=== PATIENT | female | born 1990 | race Caucasian/White ===

== ENCOUNTER 2016-10-10 16:21 | Emergency (ER) | payer BC, MEDICAID ==
[~2016-10-10] VITALS: Ht 175.3 cm; Wt 63.5 kg
[~2016-10-10 16:21] MED LIST: ALPR2TAB2 PO
--- NOTE | 2016-10-10 16:35 | NUR ---
PT CAME IN FOR C/O LEFT SIDED CHEST PAIN RADIATES TO LEFT SHOULDER, +NAUSEOUS X 2 WEEKS. NOTED ANXIOUS. DENIES TRAUMA. SEEN BY PA. VSS. SAFETY AND COMFORT MEASURES PROVIDED. WILL MONITOR.
[2016-10-10 16:49] LABS: BASOPHILS # (AUTO) 0.2 /CMM (0.0-0.2); BASOPHILS % (AUTO) 2.3 % (0.0-2.0); EOSINOPHILS # (AUTO) 0.1 /CMM (0.0-0.7); HEMATOCRIT 44 % (33-45); HEMOGLOBIN 14.3 g/dL (11.5-14.8); LYMPHOCYTES # (AUTO) 3.1 /CMM (0.8-4.8); LYMPHOCYTES % (AUTO) 32.2 % (20.0-44.0); MEAN CORPUSCULAR HEMOGLOBIN 30 PG (26.0-33.0); MEAN CORPUSCULAR HGB CONC 33 g/dl (31.0-36.0); MEAN CORPUSCULAR VOLUME 92 fL (82-100); MONOCYTES # (AUTO) 0.5 /CMM (0.1-1.30); NEUTROPHILS # (AUTO) 5.9 /CMM (1.8-8.9); NEUTROPHILS % (AUTO) 59.5 % (43.0-81.0); PLATELET COUNT (AUTO) 311 /CMM (150-450); RDW COEFFICIENT OF VARIATION 13.3 (11.5-15.0); RED BLOOD CELL COUNT(AUTO) 4.74 MIL/uL (4.0-5.2); WHITE BLOOD COUNT (AUTO) 9.8 K/uL (4.3-11.0)
[2016-10-10 16:59] LABS: CALCIUM, SERUM 8.7 mg/dL (8.5-10.1); CARBON DIOXIDE 28 mmol/L (21-32); CHLORIDE 103 mmol/L (98-107); CREATININE 0.8 mg/dL (0.6-1.3); GLUCOSE 86 mg/dL (74-106); POTASSIUM 3.2 mmol/L (3.5-5.1); SODIUM SERUM 140 mmol/L (136-145); UREA NITROGEN, BLOOD 12 mg/dL (7-18)
[2016-10-10 17:04] LABS: APPEARANCE,URINE Clear (CLEAR); BILIRUBIN,URINE Negative (NEGATIVE); BLOOD, URINE Trace-lysed Ery/uL (NEGATIVE); COLOR,URINE Yellow (YELLOW); KETONES,URINE Negative (NEGATIVE); LEUKOCYTE ESTERASE ,URINE Negative (NEGATIVE); NITRITE, URINE Negative (NEGATIVE); PH,URINE 6.5 (5.0-8.0); PROTEIN,URINE Negative (NEGATIVE); UGLUCOSE Negative (NEGATIVE); UROBILINOGEN,URINE 0.2 EU/dL (0.2)
[2016-10-10 17:05] LABS: ACETAMINOPHEN < 2 ug/ml (10-30); ALANINE AMINOTRANSFERASE 19 U/L (12-78); ALBUMIN 4.1 g/dL (3.4-5.0); ALCOHOL, BLOOD < 3 mg/dL (0-0); ALKALINE PHOSPHATASE 57 U/L (46-116); ASPARTATE AMINOTRANSFERASE 13 U/L (15-37); BILIRUBIN,DIRECT 0.1 mg/dL (0.0-0.2); BILIRUBIN,TOTAL 0.3 mg/dL (0.2-1.0); SALICYLATE 2.9 mg/dL (2.8-20.0); TOTAL PROTEIN, SERUM 7.1 g/dL (6.4-8.2)
[2016-10-10 17:14] LABS: BACTERIA,URINE Many /HPF (None Seen); SQUAMOUS EPITHELIAL CELL,UR Moderate /HPF (None Seen); WBC,URINE 0-2 /HPF (0-3)
[2016-10-10] MEDS ORDERED: TOPIRAMATE 25 MG TABLET PO STA (18:14)
[2016-10-10] MEDS ORDERED: LORAZEPAM 1 MG TABLET PO STA (18:14)
[2016-10-10] MEDS ORDERED: TOPIRAMATE 25 MG TABLET ONE (18:20)
[2016-10-10] MEDS ORDERED: LORAZEPAM 1 MG TABLET ONE (18:20)
--- NOTE | 2016-10-10 18:20 | NUR ---
PT MEDICATED ORDERED.
--- NOTE | 2016-10-10 18:24 | NUR ---
Patient discharged to home in stable condition. Written and verbal after care instructions given. Patient verbalizes understanding of instruction.
--- NOTE | 2016-10-10 18:27 | NUR ---
PT DISCHARGED TO WAITING ROOM TO WAIT FOR HER FRIEND TO PICK HER UP. INSTRUCTED PT NOT TO DRIVE. PT VERBALIZED UNDERSTANDING.
[2016-10-10 18:30] VITALS: BP 118/77
== END 2016-10-10 18:31 | disposition home or self-care (01) ==
LOC: ER 16:23
DX: F41.9 Anxiety disorder, unspecified (principal); G43.909 Migraine, unspecified, not intractable, without status migrainosus; F17.200 Nicotine dependence, unspecified, uncomplicated; R82.99 Other abnormal findings in urine; Z88.6 Allergy status to analgesic agent
CPT/HCPCS: 36415; 71010; 80048; 80076; 80305; 80329; 81001; 84484; 85025; 87086; 93005; 99285; A4606; G0480 ×2; Z7610; 81000-TC